=== PATIENT | male | born 1975 | race Caucasian/White ===

== ENCOUNTER → 2016-09-14 | Outpatient (CLI) | payer BC ==
[~2016-09-14] MED LIST: DAYPRO600 M1 PO; ROBAXIN750 MG PO; VICODIN 500 MG-1 TAB PO
== END | disposition home or self-care (01) ==
LOC: LAB 10:33
DX: Z30.2 Encounter for sterilization (principal)

== ENCOUNTER → 2017-03-30 | Outpatient (CLI) | payer BC ==
[2017-03-31 08:11] LABS: RHEUMATOID ARTHRITIS FACTOR <10.0 IU/mL (0.0-13.9)
[2017-03-31 22:06] LABS: CCP ANTIBODIES IGG/IGA 4 units (0-19)
== END | disposition home or self-care (01) ==
LOC: LAB 09:55
PROVIDERS: Internal Medicine
DX: M06.9 Rheumatoid arthritis, unspecified (principal)

== ENCOUNTER → 2020-07-28 | Outpatient (CLI) | payer BC | END | disposition home or self-care (01) | LOC: RAD 16:20 | PROVIDERS: ATTEND Chiropractor | DX: M54.2 Cervicalgia (principal) ==